=== PATIENT | female | born 1945 | race African-American/Black ===

== ENCOUNTER 2023-01-07 06:28 | Inpatient (IN) | payer MEDICARE, SELFPAY ==
[2023-01-07 07:02] LABS: Actual Bicarbonate (HCO3a) 19.6 mEq/L (22-28); Base Excess (BEa) -6.6 mEq/L (-2.0 to +3.0); CO2 Tension 41.7 mmHg (35.0-45.0); Calcium, Ionized (arterial) 1.11 mmol/L (1.12-1.30); Carboxyhemoglobin (COHb) 1.8 gm% (0.0-3.0); Hematocrit-ABG 38 % (36.0-47.0); Hemoglobin (Hb) 12.8 g/dL (12.0-16.0); O2 Tension (PaO2), arterial 62.6 mmHg (> 70.0); Potassium - ABG Lab 3.19 mmol/L (3.70-5.30)
[2023-01-07 07:05] LABS: ALV-art Gradient 170.475 mmHg (0-20); Puncture Site RRA
[2023-01-07 07:07] LABS: Hematocrit 39.6 % (36.0-47.0); Hemoglobin 12.5 g/dL (12.0-16.0); Mean Corpuscular HGB CONC 31.6 g/dL (32.0-36.0); Mean Corpuscular Hemoglobin 31.2 pg (27.0-31.0); Mean Corpuscular Volume 98.8 fl (78.0-98.0); Platelet Count 195 10x3/uL (130-400); RBC Distribution Width 13.8 % (11.5-14.5); Red Blood Cell (RBC) Count 4.01 mill/uL (4.20-5.40); White Blood Cell (WBC) Count 15.9 10x3/uL (4.8-10.8)
[2023-01-07 07:11] LABS: Delete Auto Diff?? YES; Manual Diff?? YES
[2023-01-07] MEDS ORDERED: Rocuronium Bromide 10 MG/ML (10ML VIAL) ONE (07:14)
[2023-01-07] MEDS ORDERED: Fentanyl CADD 100 ML IV SCH ×2 (07:30→10:45)
[2023-01-07 07:32] LABS: ALT (SGPT) 36 U/L (8-55); AST (SGOT) 73 U/L (5-34); Albumin 4.2 g/dL (3.4-4.8); Alkaline Phosphatase 96 U/L (40-110); Anion Gap 15 mmol/L (10-20); BUN (Urea Nitrogen) 14 mg/dL (9.8-20.1); Bilirubin, Total 0.3 mg/dL (0.2-1.2); Calc. Creatinine Clearance 0 mL/min (70-130); Calcium 8.2 mg/dL (7.8-10.44); Carbon Dioxide 23 mmol/L (23-31); Chloride 108 mmol/L (98-107); Estimated GFR 50; Globulin 2.2 g/dL (2.4-3.5); Glucose 240 mg/dL (83-110); Potassium 3.3 mmol/L (3.5-5.1); Protein, Total 6.4 g/dL (5.8-8.1); Sodium 143 mmol/L (136-145)
[2023-01-07 07:36] LABS: Band 1 % (5-11); Burr Cells MODERATE= 6-15 cells HPF (0-1); CellaVision Operator ID LAB.GE; Eosinophils 2 % (0-10); Lymphocytes 31 % (21-51); Monocytes 1 % (0-10); Neutrophil 65 % (42-75); Platelet Adequacy Comment Platelets Normal; Polychromasia SLIGHT = 2-3 cells HPF (0-2); Total Cell Count 100
[2023-01-07 07:42] LABS: Troponin I 0.484 ng/mL (< 0.028)
[2023-01-07] MEDS ORDERED: Ipratropium/Albuterol 3 ML NEB ONE (07:46)
[2023-01-07] MEDS ORDERED: methylPREDNISolone Sod Succ/PF 125 MG/2 ML VIAL ONE (07:51)
[2023-01-07] MEDS ORDERED: Potassium Chloride 20 MEQ/100 ML PREMIX BAG ONE (07:51)
[2023-01-07 07:58] LABS: Actual Bicarbonate (HCO3a) 21.1 mEq/L (22-28); Base Excess (BEa) -4.4 mEq/L (-2.0 to +3.0); CO2 Tension 40.7 mmHg (35.0-45.0); Calcium, Ionized (arterial) 1.08 mmol/L (1.12-1.30); Carboxyhemoglobin (COHb) 1.5 gm% (0.0-3.0); Hematocrit-ABG 38 % (36.0-47.0); Hemoglobin (Hb) 12.8 g/dL (12.0-16.0); O2 Tension (PaO2), arterial 187.9 mmHg (> 70.0); Potassium - ABG Lab 3.13 mmol/L (3.70-5.30); pH, Arterial 7.333 (7.35-7.45)
[2023-01-07 07:59] LABS: ALV-art Gradient 474.225 mmHg (0-20); Puncture Site RRA
[2023-01-07 08:15] LABS: Bacteria/HPF None Seen HPF (None Seen); Bilirubin Negative (Negative); Blood, Urine 2+ (Negative); CAUTI Indications for Culture Urological Procedure; Clarity Clear (Clear); Glucose, Urine (Dipstick) 100 mg/dL (Negative); Ketone, Urine Negative (Negative); Leukocyte Negative Leu/uL (Negative); Nitrite Negative (Negative); Protein, Urine (Dipstick) 50 mg/dL (Neg-Trace); Specific Gravity, Urine 1.012 (1.002-1.036); Squamous Epithelial 0-3 HPF (0-3); Urobilinogen Normal mg/dL (Less than 2); pH, Urine 5.5 (5.0-9.0)
[2023-01-07 08:20] LABS: Urine Culture Reflex Yes Yes
[2023-01-07 08:33] LABS: Magnesium 2.1 mg/dL (1.6-2.6)
[2023-01-07] MEDS ORDERED: cefTRIAXone (ROCEPHIN) 2 GM VIAL ONE (08:37)
[2023-01-07] MEDS ORDERED: Aspirin 300 MG Suppository ONE (08:37)
[2023-01-07] MEDS ORDERED: Azithromycin 500 MG VIAL ONE (08:37)
[2023-01-07 08:54] LABS: SARS-CoV-2 NAA Rapid Test Not Detected (NotDetected)
[2023-01-07] MEDS ORDERED: Iopamidol-370 76% 500 ML MDV (1 ML CHARGE) ONE (09:33)
[2023-01-07] MEDS ORDERED: Acetaminophen 325 MG TAB PER TUBE PRN (10:08)
[2023-01-07] MEDS ORDERED: NOREPINEPHRINE 8 MG/250 ML-D5W 250 ML IVPB PRN (10:08)
[2023-01-07] MEDS ORDERED: Ventilator Sedation Protocol 1 EACH FS SCH (10:15)
[2023-01-07 10:29] LABS: Lactic Acid 6.4 mmol/L (0.5-2.2)
[2023-01-07] MEDS ORDERED: Electrolyte Replacement Protocol 1 EACH FS SCH (10:30)
[2023-01-07] MEDS ORDERED: Dextrose 50% Abboject 50 ML SYRINGE SLOW IVP PRN (10:34)
[2023-01-07] MEDS ORDERED: Dextrose 5% in Water 1,000 ML IV PRN (10:34)
[2023-01-07] MEDS ORDERED: Glucagon 1 MG/ML KIT IM PRN (10:34)
[2023-01-07] MEDS ORDERED: Electrolyte Replacement Protocol FS PRN (10:45)
[2023-01-07] MEDS ORDERED: Sodium Chloride 0.9% 250 ML IV SCH (10:45)
[2023-01-07] MEDS ORDERED: Morphine 2 MG/ML VIAL SLOW IVP PRN (10:45)
[2023-01-07] MEDS ORDERED: Propofol BOLUS 1,000 MG/100 ML VIAL IV PRN (10:45)
[2023-01-07] MEDS ORDERED: Fentanyl BOLUS 250 ML IVPB PRN (10:45)
[2023-01-07 10:48] LABS: Amphetamine Not Detected (NotDetected); Barbiturates Screen Not Detected (NotDetected); Benzodiazepine Screen Not Detected (NotDetected); Cocaine Metabolite Screen Not Detected (NotDetected); Methadone Not Detected (NotDetected); Methamphetamine Not Detected (NotDetected); Opiate Screen Not Detected (NotDetected); Oxycodone Screen Not Detected (NotDetected); Phencyclidine (PCP) Not Detected (NotDetected); THC/Cannabinoid Screen Not Detected (NotDetected); Tricyclic Screen Not Detected (NotDetected)
[2023-01-07 11:06] LABS: Troponin I 5.897 ng/mL (< 0.028)
[2023-01-07 11:44] LABS: Legionella Urinary Ag Negative (Negative)
[2023-01-07 11:45] LABS: Strep pneumo Urine Ag NEGATIVE (NEGATIVE)
[2023-01-07] MEDS: Potassium Chloride 20 MEQ in Premix Bag 1 BAG IVPB SCH ×2 (11:45→14:00)
[2023-01-07] MEDS: Cefepime 2 GM in Sodium Chloride 0.9% 100 ML IVPB SCH ×2 (11:55→23:33)
[2023-01-07 12:19] LABS: Lactic Acid 3.2 mmol/L (0.5-2.2)
[2023-01-07] MEDS: Hydrocortisone Sod Succ/PF 100 mg/2 ml Vial IVP SCH ×2 (12:30→18:26)
[2023-01-07] MEDS: Insulin Regular 300 UNITS/3 ML VIAL SC SCH ×2 (13:10→18:26)
[2023-01-07 13:48] LABS: Critical Call Chem Troponin I DECREASE; Troponin I 5.563 ng/mL (< 0.028)
[2023-01-07] MEDS: Ipratropium/Albuterol 3 ML NEB NEB SCH ×3 (14:17→23:53)
[2023-01-07] MEDS ORDERED: Communication Order-Pharmacy FS ONE (14:23)
[2023-01-07 15:01] LABS: Hematocrit 40.2 % (36.0-47.0); Hemoglobin 12.2 g/dL (12.0-16.0); Platelet Count 118 10x3/uL (130-400)
[2023-01-07 16:46] LABS: Albumin 3.4 g/dL (3.4-4.8); Anion Gap 16 mmol/L (10-20); BUN (Urea Nitrogen) 15 mg/dL (9.8-20.1); BUN/Creatinine Ratio 16.48; Calc. Creatinine Clearance 82 mL/min (70-130); Calcium 7.7 mg/dL (7.8-10.44); Carbon Dioxide 15 mmol/L (23-31); Chloride 114 mmol/L (98-107); Estimated GFR 66; Glucose 184 mg/dL (83-110); Phosphorus 3.5 mg/dL (2.3-4.7); Potassium 4.4 mmol/L (3.5-5.1); Sodium 141 mmol/L (136-145)
[2023-01-07] MEDS ORDERED: Famotidine/PF 20 mg/2ml Vial SLOW IVP SCH (21:00)
[2023-01-07] MEDS ORDERED: Metoprolol Tartrate 5 MG/5 ML VIAL IVP PRN (23:17)
[2023-01-07] MEDS: Heparin 25,000 units/D5W 500 ML IV SCH (23:34)
[2023-01-07] MEDS: Heparin 10,000 UNITS/ 10 ML VIAL SLOW IVP SCH (23:35)
[2023-01-08] MEDS: Hydrocortisone Sod Succ/PF 100 mg/2 ml Vial IVP SCH ×4 (00:07→17:27)
[2023-01-08] MEDS: Propofol 1,000 MG/100 ML VIAL IV PRN ×4 (01:34→18:07)
[2023-01-08 03:34] LABS: #Monocytes 0.6 thou/uL (0.11-0.59); #Neutrophils 11.2 thou/uL (1.40-6.50); %Basophils 0.2 % (0.0-1.0); %Lymphocytes 6.4 % (21.0-51.0); %Monocytes 4.7 % (0.0-10.0); %Neutrophils 88.3 % (42.0-75.0); Hematocrit 40.2 % (36.0-47.0); Hemoglobin 12.3 g/dL (12.0-16.0); Mean Corpuscular HGB CONC 30.6 g/dL (32.0-36.0); Mean Corpuscular Hemoglobin 31.3 pg (27.0-31.0); Mean Platelet Volume 11.9 fL (7.4-10.4); Platelet Count 104 10x3/uL (130-400); RBC Distribution Width 13.7 % (11.5-14.5); Red Blood Cell (RBC) Count 3.93 mill/uL (4.20-5.40); White Blood Cell (WBC) Count 12.7 10x3/uL (4.8-10.8)
[2023-01-08 03:43] LABS: Mean Corpuscular Volume 102.3 fl (78.0-98.0)
[2023-01-08 03:57] LABS: ALT (SGPT) 37 U/L (8-55); AST (SGOT) 55 U/L (5-34); Albumin 3.2 g/dL (3.4-4.8); Alkaline Phosphatase 71 U/L (40-110); Anion Gap 18 mmol/L (10-20); BUN (Urea Nitrogen) 15 mg/dL (9.8-20.1); Bilirubin, Total 0.3 mg/dL (0.2-1.2); Calc. Creatinine Clearance 76 mL/min (70-130); Calcium 7.9 mg/dL (7.8-10.44); Carbon Dioxide 14 mmol/L (23-31); Chloride 111 mmol/L (98-107); Estimated GFR 77; Globulin 2.6 g/dL (2.4-3.5); Glucose 172 mg/dL (83-110); Potassium 4.2 mmol/L (3.5-5.1); Protein, Total 5.8 g/dL (5.8-8.1); Sodium 139 mmol/L (136-145)
[2023-01-08] MEDS: Levothyroxine Sodium 88 MCG TAB PO SCH (05:38)
[2023-01-08 07:18] LABS: PTT Greater than 250.0 sec (22.9-36.1)
[2023-01-08] MEDS: Ipratropium/Albuterol 3 ML NEB NEB SCH ×3 (07:32→18:21)
[2023-01-08] MEDS ORDERED: Furosemide 20 MG/2 ML VIAL SLOW IVP SCH (07:45)
[2023-01-08] MEDS: Azithromycin 500 MG in Sodium Chloride 0.9% 250 ML 250 ML IVPB SCH (08:12)
[2023-01-08] MEDS: Aspirin Chewable 81 MG TAB PER TUBE SCH (08:14)
[2023-01-08] MEDS: Lansoprazole 15 MG/5 ML (BATCHED)UDCUP PER TUBE SCH (08:18)
[2023-01-08] MEDS: Cefepime 2 GM in Sodium Chloride 0.9% 100 ML IVPB SCH ×2 (10:37→22:38)
[2023-01-08] MEDS: Lorazepam 2 MG/ML VIAL SLOW IVP PRN ×2 (11:29→12:45)
[2023-01-08] MEDS ORDERED: hydrALAZINE 20 MG/ML VIAL SLOW IVP PRN (12:15)
[2023-01-08] MEDS: Carvedilol 6.25 MG TAB PER TUBE SCH ×2 (12:34→20:33)
[2023-01-08] MEDS ORDERED: Fentanyl CADD 100 ML ONE (15:09)
[2023-01-08] MEDS: Heparin 10,000 UNITS/ 10 ML VIAL SLOW IVP SCH (19:07)
[2023-01-09] MEDS: Hydrocortisone Sod Succ/PF 100 mg/2 ml Vial IVP SCH ×4 (00:03→20:52)
[2023-01-09] MEDS: Ipratropium/Albuterol 3 ML NEB NEB SCH ×5 (00:11→23:46)
[2023-01-09] MEDS: Propofol 1,000 MG/100 ML VIAL IV PRN ×2 (00:24→06:00)
[2023-01-09 02:07] LABS: PTT 122.1 sec (22.9-36.1)
[2023-01-09 04:45] LABS: #Monocytes 0.5 thou/uL (0.11-0.59); #Neutrophils 12.5 thou/uL (1.40-6.50); %Basophils 0.1 % (0.0-1.0); %Lymphocytes 4.3 % (21.0-51.0); %Monocytes 3.6 % (0.0-10.0); %Neutrophils 91.6 % (42.0-75.0); Hematocrit 33.8 % (36.0-47.0); Mean Corpuscular HGB CONC 32.5 g/dL (32.0-36.0); Mean Corpuscular Volume 95.2 fl (78.0-98.0); Mean Platelet Volume 12.2 fL (7.4-10.4); Platelet Count 131 10x3/uL (130-400); Red Blood Cell (RBC) Count 3.55 mill/uL (4.20-5.40); White Blood Cell (WBC) Count 13.6 10x3/uL (4.8-10.8)
[2023-01-09 05:26] LABS: Albumin 3.3 g/dL (3.4-4.8); Alkaline Phosphatase 63 U/L (40-110); Anion Gap 12 mmol/L (10-20); Bilirubin, Total 0.3 mg/dL (0.2-1.2); Calcium 7.9 mg/dL (7.8-10.44); Carbon Dioxide 24 mmol/L (23-31); Chloride 107 mmol/L (98-107); Globulin 2.2 g/dL (2.4-3.5); Glucose 127 mg/dL (83-110); Protein, Total 5.5 g/dL (5.8-8.1); Sodium 139 mmol/L (136-145)
[2023-01-09 05:33] LABS: ALT (SGPT) 29 U/L (8-55); AST (SGOT) 28 U/L (5-34); BUN (Urea Nitrogen) 18 mg/dL (9.8-20.1); Calc. Creatinine Clearance 77 mL/min (70-130); Estimated GFR 76
[2023-01-09] MEDS: Levothyroxine Sodium 88 MCG TAB PO SCH (05:54)
[2023-01-09] MEDS ORDERED: Furosemide 20 MG/2 ML VIAL SLOW IVP SCH (07:15)
[2023-01-09] MEDS: Lansoprazole 15 MG/5 ML (BATCHED)UDCUP PER TUBE SCH (08:18)
[2023-01-09] MEDS: Carvedilol 6.25 MG TAB PER TUBE SCH (08:18)
[2023-01-09] MEDS: Aspirin Chewable 81 MG TAB PER TUBE SCH (08:19)
[2023-01-09] MEDS: Azithromycin 500 MG in Sodium Chloride 0.9% 250 ML 250 ML IVPB SCH (09:54)
[2023-01-09] MEDS: Cefepime 2 GM in Sodium Chloride 0.9% 100 ML IVPB SCH ×2 (12:33→23:19)
[2023-01-09] MEDS: Heparin 25,000 units/D5W 500 ML IV SCH (13:44)
[2023-01-09] MEDS: Furosemide 20 MG/2 ML VIAL SLOW IVP SCH (13:44)
[2023-01-09 14:30] LABS: PTT 154.6 sec (22.9-36.1)
[2023-01-09] MEDS: Heparin 10,000 UNITS/ 10 ML VIAL SLOW IVP SCH (23:10)
[2023-01-10] MEDS: Hydrocortisone Sod Succ/PF 100 mg/2 ml Vial IVP SCH ×5 (01:06→23:19)
[2023-01-10 04:46] LABS: #Monocytes 0.5 thou/uL (0.11-0.59); #Neutrophils 12.3 thou/uL (1.40-6.50); %Basophils 0.1 % (0.0-1.0); %Lymphocytes 5.4 % (21.0-51.0); %Monocytes 3.5 % (0.0-10.0); %Neutrophils 90.3 % (42.0-75.0); Hematocrit 33.5 % (36.0-47.0); Hemoglobin 10.8 g/dL (12.0-16.0); Mean Corpuscular HGB CONC 32.2 g/dL (32.0-36.0); Mean Corpuscular Hemoglobin 30.6 pg (27.0-31.0); Mean Corpuscular Volume 94.9 fl (78.0-98.0); Mean Platelet Volume 12.2 fL (7.4-10.4); Platelet Count 136 10x3/uL (130-400); RBC Distribution Width 14.3 % (11.5-14.5); Red Blood Cell (RBC) Count 3.53 mill/uL (4.20-5.40); White Blood Cell (WBC) Count 13.6 10x3/uL (4.8-10.8)
[2023-01-10 04:58] LABS: Hemoglobin A1c 5.2 % (4.0-6.0)
[2023-01-10 05:08] LABS: ALT (SGPT) 27 U/L (8-55); AST (SGOT) 21 U/L (5-34); Albumin 3.3 g/dL (3.4-4.8); Alkaline Phosphatase 61 U/L (40-110); Anion Gap 11 mmol/L (10-20); BUN (Urea Nitrogen) 24 mg/dL (9.8-20.1); Bilirubin, Total 0.3 mg/dL (0.2-1.2); Calc. Creatinine Clearance 72 mL/min (70-130); Calcium 8.1 mg/dL (7.8-10.44); Carbon Dioxide 27 mmol/L (23-31); Chloride 106 mmol/L (98-107); Estimated GFR 73; Globulin 2.3 g/dL (2.4-3.5); Glucose 118 mg/dL (83-110); Potassium 3.5 mmol/L (3.5-5.1); Protein, Total 5.6 g/dL (5.8-8.1); Sodium 140 mmol/L (136-145)
[2023-01-10] MEDS: Furosemide 20 MG/2 ML VIAL SLOW IVP SCH ×2 (05:42→13:35)
[2023-01-10] MEDS: Levothyroxine Sodium 88 MCG TAB PO SCH (05:42)
[2023-01-10] MEDS: Ipratropium/Albuterol 3 ML NEB NEB SCH ×3 (07:33→18:41)
[2023-01-10] MEDS: Lansoprazole 15 MG/5 ML (BATCHED)UDCUP PER TUBE SCH (08:00)
[2023-01-10] MEDS: Aspirin Chewable 81 MG TAB PER TUBE SCH (08:00)
[2023-01-10] MEDS ORDERED: Potassium Chloride 20 MEQ TAB PO SCH (08:00)
[2023-01-10] MEDS: Azithromycin 500 MG in Sodium Chloride 0.9% 250 ML 250 ML IVPB SCH (08:00)
[2023-01-10 09:37] LABS: Actual Bicarbonate (HCO3a) 28.2 mEq/L (22-28); Base Excess (BEa) 4.5 mEq/L (-2.0 to +3.0); CO2 Tension 38.7 mmHg (35.0-45.0); Calcium, Ionized (arterial) 1.03 mmol/L (1.12-1.30); Carboxyhemoglobin (COHb) 0.3 gm% (0.0-3.0); Hematocrit-ABG 35 % (36.0-47.0); Hemoglobin (Hb) 11.8 g/dL (12.0-16.0); O2 Tension (PaO2), arterial 136.2 mmHg (> 70.0); Potassium - ABG Lab 3.37 mmol/L (3.70-5.30); pH, Arterial 7.481 (7.35-7.45)
[2023-01-10 09:52] LABS: ALV-art Gradient 100.625 mmHg (0-20); Puncture Site LRA
[2023-01-10] MEDS: Cefepime 2 GM in Sodium Chloride 0.9% 100 ML IVPB SCH ×2 (11:33→22:21)
[2023-01-10 11:51] LABS: Potassium 3.5 mmol/L (3.5-5.1)
[2023-01-10] MEDS ORDERED: Potassium Bicarbonate/Cit Ac 20 MEQ TAB PO SCH (13:45)
[2023-01-10] MEDS: Carvedilol 3.125 MG TAB PO SCH (17:20)
[2023-01-10 18:46] LABS: Potassium 4.3 mmol/L (3.5-5.1)
[2023-01-11] MEDS: Ipratropium/Albuterol 3 ML NEB NEB SCH ×4 (01:50→18:18)
[2023-01-11 03:55] LABS: #Monocytes 0.5 thou/uL (0.11-0.59); #Neutrophils 11.4 thou/uL (1.40-6.50); %Basophils 0.1 % (0.0-1.0); %Lymphocytes 5.8 % (21.0-51.0); %Monocytes 4.1 % (0.0-10.0); %Neutrophils 89.5 % (42.0-75.0); Hematocrit 34.2 % (36.0-47.0); Mean Corpuscular HGB CONC 32.2 g/dL (32.0-36.0); Mean Corpuscular Hemoglobin 31.1 pg (27.0-31.0); Mean Corpuscular Volume 96.6 fl (78.0-98.0); Mean Platelet Volume 12.1 fL (7.4-10.4); Platelet Count 144 10x3/uL (130-400); RBC Distribution Width 14.4 % (11.5-14.5); Red Blood Cell (RBC) Count 3.54 mill/uL (4.20-5.40); White Blood Cell (WBC) Count 12.7 10x3/uL (4.8-10.8)
[2023-01-11 04:36] LABS: ALT (SGPT) 38 U/L (8-55); AST (SGOT) 37 U/L (5-34); Albumin 3.4 g/dL (3.4-4.8); Alkaline Phosphatase 61 U/L (40-110); Anion Gap 8 mmol/L (10-20); BUN (Urea Nitrogen) 36 mg/dL (9.8-20.1); Bilirubin, Total 0.4 mg/dL (0.2-1.2); Calc. Creatinine Clearance 75 mL/min (70-130); Calcium 8.2 mg/dL (7.8-10.44); Carbon Dioxide 31 mmol/L (23-31); Chloride 103 mmol/L (98-107); Estimated GFR 77; Globulin 2.6 g/dL (2.4-3.5); Glucose 111 mg/dL (83-110); Potassium 4.1 mmol/L (3.5-5.1); Sodium 138 mmol/L (136-145)
[2023-01-11] MEDS: Furosemide 20 MG/2 ML VIAL SLOW IVP SCH (05:37)
[2023-01-11] MEDS: Hydrocortisone Sod Succ/PF 100 mg/2 ml Vial IVP SCH ×2 (05:38→21:51)
[2023-01-11] MEDS: Levothyroxine Sodium 88 MCG TAB PO SCH (06:46)
[2023-01-11] MEDS: Furosemide 20 MG TAB PO SCH (08:32)
[2023-01-11] MEDS: Azithromycin 500 MG in Sodium Chloride 0.9% 250 ML 250 ML IVPB SCH (08:33)
[2023-01-11] MEDS: Carvedilol 3.125 MG TAB PO SCH ×2 (08:33→16:34)
[2023-01-11] MEDS: Aspirin Chewable 81 MG TAB PER TUBE SCH (08:33)
[2023-01-11] MEDS: Lansoprazole 15 MG/5 ML (BATCHED)UDCUP PER TUBE SCH (08:38)
[2023-01-11] MEDS: Cefepime 2 GM in Sodium Chloride 0.9% 100 ML IVPB SCH ×2 (11:17→21:59)
[2023-01-12] MEDS: Ipratropium/Albuterol 3 ML NEB NEB SCH ×4 (01:41→18:47)
[2023-01-12 05:02] LABS: #Monocytes 0.5 thou/uL (0.11-0.59); #Neutrophils 11.8 thou/uL (1.40-6.50); %Basophils 0.1 % (0.0-1.0); %Eosinophils 0.1 % (0.0-10.0); %Lymphocytes 8.4 % (21.0-51.0); %Monocytes 3.9 % (0.0-10.0); %Neutrophils 86.9 % (42.0-75.0); Hematocrit 35.5 % (36.0-47.0); Hemoglobin 11.5 g/dL (12.0-16.0); Mean Corpuscular HGB CONC 32.4 g/dL (32.0-36.0); Mean Corpuscular Hemoglobin 31.1 pg (27.0-31.0); Mean Corpuscular Volume 95.9 fl (78.0-98.0); Mean Platelet Volume 11.8 fL (7.4-10.4); Platelet Count 169 10x3/uL (130-400); White Blood Cell (WBC) Count 13.6 10x3/uL (4.8-10.8)
[2023-01-12 05:23] LABS: ALT (SGPT) 41 U/L (8-55); AST (SGOT) 33 U/L (5-34); Albumin 3.6 g/dL (3.4-4.8); Alkaline Phosphatase 67 U/L (40-110); Anion Gap 13 mmol/L (10-20); BUN (Urea Nitrogen) 32 mg/dL (9.8-20.1); Bilirubin, Total 0.6 mg/dL (0.2-1.2); Calc. Creatinine Clearance 83 mL/min (70-130); Calcium 8.7 mg/dL (7.8-10.44); Carbon Dioxide 30 mmol/L (23-31); Chloride 103 mmol/L (98-107); Estimated GFR 89; Globulin 2.5 g/dL (2.4-3.5); Glucose 88 mg/dL (83-110); Potassium 3.6 mmol/L (3.5-5.1); Protein, Total 6.1 g/dL (5.8-8.1); Sodium 142 mmol/L (136-145)
[2023-01-12] MEDS: Levothyroxine Sodium 88 MCG TAB PO SCH (06:18)
[2023-01-12] MEDS: Carvedilol 3.125 MG TAB PO SCH (08:05)
[2023-01-12] MEDS: Furosemide 20 MG TAB PO SCH (08:05)
[2023-01-12] MEDS: Aspirin Chewable 81 MG TAB PER TUBE SCH (08:06)
[2023-01-12] MEDS: Lansoprazole 15 MG/5 ML (BATCHED)UDCUP PER TUBE SCH (08:10)
[2023-01-12] MEDS: Hydrocortisone Sod Succ/PF 100 mg/2 ml Vial IVP SCH (08:52)
[2023-01-12] MEDS ORDERED: DC Sedation Protocol FS SCH (10:09)
[2023-01-12] MEDS: Cefepime 2 GM in Sodium Chloride 0.9% 100 ML IVPB SCH ×2 (12:35→22:21)
[2023-01-12] MEDS ORDERED: Spironolactone 25 MG TAB PO SCH (13:45)
[2023-01-12] MEDS ORDERED: Carvedilol 3.125 MG TAB PO SCH (17:00)
[2023-01-12] MEDS: Sacubitril 24MG/Valsartan 26 MG TAB PO SCH (22:20)
[2023-01-13] MEDS: Ipratropium/Albuterol 3 ML NEB NEB SCH ×4 (00:28→18:56)
[2023-01-13 05:40] LABS: Hemoglobin 11.3 g/dL (12.0-16.0); Mean Corpuscular HGB CONC 32.3 g/dL (32.0-36.0); Mean Corpuscular Hemoglobin 30.5 pg (27.0-31.0); Mean Corpuscular Volume 94.3 fl (78.0-98.0); Mean Platelet Volume 11.8 fL (7.4-10.4); Platelet Count 168 10x3/uL (130-400); RBC Distribution Width 13.7 % (11.5-14.5); Red Blood Cell (RBC) Count 3.71 mill/uL (4.20-5.40); White Blood Cell (WBC) Count 10.4 10x3/uL (4.8-10.8)
[2023-01-13 05:44] LABS: Delete Auto Diff?? YES; Manual Diff?? YES
[2023-01-13 06:08] LABS: ALT (SGPT) 33 U/L (8-55); AST (SGOT) 26 U/L (5-34); Albumin 3.2 g/dL (3.4-4.8); Alkaline Phosphatase 64 U/L (40-110); Anion Gap 14 mmol/L (10-20); BUN (Urea Nitrogen) 30 mg/dL (9.8-20.1); Bilirubin, Total 0.7 mg/dL (0.2-1.2); Calc. Creatinine Clearance 79 mL/min (70-130); Calcium 8.4 mg/dL (7.8-10.44); Carbon Dioxide 30 mmol/L (23-31); Chloride 99 mmol/L (98-107); Estimated GFR 83; Globulin 2.4 g/dL (2.4-3.5); Glucose 74 mg/dL (83-110); Potassium 3.1 mmol/L (3.5-5.1); Protein, Total 5.6 g/dL (5.8-8.1); Sodium 140 mmol/L (136-145)
[2023-01-13 06:11] LABS: Anisocytosis MODERATE=16-30 cells HPF (0-5); Band 7 % (5-11); CellaVision Operator ID LAB.CLH1; Eosinophils 1 % (0-10); Hypochromia SLIGHT = 6-15 cells HPF (0-5); Lymphocytes 33 % (21-51); Macrocytosis SLIGHT = 6-15 cells HPF (0-5); Neutrophil 58 % (42-75); Platelet Adequacy Comment Platelets Normal; Polychromasia SLIGHT = 2-3 cells HPF (0-2); Reactive Lymphocytes 1 % (0-10); Total Cell Count 100
[2023-01-13] MEDS: Levothyroxine Sodium 88 MCG TAB PO SCH (06:13)
[2023-01-13] MEDS ORDERED: Carvedilol 3.125 MG TAB PO SCH (07:49)
[2023-01-13] MEDS ORDERED: Potassium Chloride 20 MEQ TAB PO SCH (08:00)
[2023-01-13] MEDS: Aspirin Chewable 81 MG TAB PER TUBE SCH (08:57)
[2023-01-13] MEDS: Carvedilol 6.25 MG TAB PO SCH ×2 (08:57→16:30)
[2023-01-13] MEDS: Spironolactone 25 MG TAB PO SCH (08:57)
[2023-01-13] MEDS: Furosemide 20 MG TAB PO SCH (08:57)
[2023-01-13] MEDS: Sacubitril 24MG/Valsartan 26 MG TAB PO SCH ×2 (08:58→21:17)
[2023-01-13] MEDS: Lansoprazole 15 MG/5 ML (BATCHED)UDCUP PER TUBE SCH (08:58)
[2023-01-13] MEDS ORDERED: Hydrocortisone Sod Succ/PF 100 mg/2 ml Vial IVP SCH (09:00)
[2023-01-13] MEDS: Cefepime 2 GM in Sodium Chloride 0.9% 100 ML IVPB SCH ×2 (10:58→23:18)
[2023-01-13 18:04] LABS: Potassium 3.6 mmol/L (3.5-5.1)
[2023-01-14] MEDS: Ipratropium/Albuterol 3 ML NEB NEB SCH ×5 (00:33→23:50)
[2023-01-14] MEDS: Levothyroxine Sodium 88 MCG TAB PO SCH (05:29)
[2023-01-14 05:55] LABS: Hematocrit 35.5 % (36.0-47.0); Hemoglobin 11.8 g/dL (12.0-16.0); Mean Corpuscular HGB CONC 33.2 g/dL (32.0-36.0); Mean Corpuscular Hemoglobin 30.8 pg (27.0-31.0); Mean Corpuscular Volume 92.7 fl (78.0-98.0); Mean Platelet Volume 11.5 fL (7.4-10.4); Platelet Count 174 10x3/uL (130-400); RBC Distribution Width 13.4 % (11.5-14.5); Red Blood Cell (RBC) Count 3.83 mill/uL (4.20-5.40); White Blood Cell (WBC) Count 11.3 10x3/uL (4.8-10.8)
[2023-01-14 06:04] LABS: Delete Auto Diff?? YES; Manual Diff?? YES
[2023-01-14 06:18] LABS: ALT (SGPT) 29 U/L (8-55); AST (SGOT) 25 U/L (5-34); Albumin 3.2 g/dL (3.4-4.8); Alkaline Phosphatase 59 U/L (40-110); Anion Gap 13 mmol/L (10-20); BUN (Urea Nitrogen) 23 mg/dL (9.8-20.1); Bilirubin, Total 0.9 mg/dL (0.2-1.2); Calc. Creatinine Clearance 80 mL/min (70-130); Calcium 8.6 mg/dL (7.8-10.44); Carbon Dioxide 28 mmol/L (23-31); Chloride 101 mmol/L (98-107); Estimated GFR 84; Globulin 2.6 g/dL (2.4-3.5); Glucose 60 mg/dL (83-110); Potassium 3.6 mmol/L (3.5-5.1); Protein, Total 5.8 g/dL (5.8-8.1); Sodium 138 mmol/L (136-145)
[2023-01-14 06:47] LABS: Band 2 % (5-11); CellaVision Operator ID LAB.GE; Eosinophils 1 % (0-10); Lymphocytes 24 % (21-51); Monocytes 5 % (0-10); Neutrophil 64 % (42-75); Platelet Adequacy Comment Platelets Normal; Polychromasia SLIGHT = 2-3 cells HPF (0-2); Reactive Lymphocytes 1 % (0-10); Total Cell Count 101
[2023-01-14] MEDS: Carvedilol 6.25 MG TAB PO SCH ×2 (09:24→18:06)
[2023-01-14] MEDS: Sacubitril 24MG/Valsartan 26 MG TAB PO SCH ×2 (09:24→21:33)
[2023-01-14] MEDS: Furosemide 20 MG TAB PO SCH (09:24)
[2023-01-14] MEDS: Lansoprazole 15 MG/5 ML (BATCHED)UDCUP PER TUBE SCH (09:24)
[2023-01-14] MEDS: Aspirin Chewable 81 MG TAB PER TUBE SCH (09:24)
[2023-01-14] MEDS: Spironolactone 25 MG TAB PO SCH (09:24)
[2023-01-14 11:48] VITALS: BMI 29.1
[2023-01-15 04:45] LABS: #Basophils 0.1 thou/uL (0.0-0.2); #Eosinphils 0.1 thou/uL (0.0-0.7); #Monocytes 0.5 thou/uL (0.11-0.59); #Neutrophils 6.5 thou/uL (1.40-6.50); %Basophils 0.7 % (0.0-1.0); %Eosinophils 1.4 % (0.0-10.0); %Lymphocytes 26.9 % (21.0-51.0); %Monocytes 5.3 % (0.0-10.0); Hematocrit 38.2 % (36.0-47.0); Hemoglobin 12.5 g/dL (12.0-16.0); Mean Corpuscular HGB CONC 32.7 g/dL (32.0-36.0); Mean Corpuscular Hemoglobin 30.9 pg (27.0-31.0); Mean Corpuscular Volume 94.3 fl (78.0-98.0); Mean Platelet Volume 10.8 fL (7.4-10.4); Platelet Count 166 10x3/uL (130-400); RBC Distribution Width 13.3 % (11.5-14.5); Red Blood Cell (RBC) Count 4.05 mill/uL (4.20-5.40); White Blood Cell (WBC) Count 10.2 10x3/uL (4.8-10.8)
[2023-01-15 05:10] LABS: ALT (SGPT) 25 U/L (8-55); AST (SGOT) 25 U/L (5-34); Albumin 3.3 g/dL (3.4-4.8); Alkaline Phosphatase 60 U/L (40-110); Anion Gap 11 mmol/L (10-20); BUN (Urea Nitrogen) 19 mg/dL (9.8-20.1); Bilirubin, Total 0.9 mg/dL (0.2-1.2); Calc. Creatinine Clearance 79 mL/min (70-130); Calcium 8.7 mg/dL (7.8-10.44); Carbon Dioxide 29 mmol/L (23-31); Cardiac Risk 4.8 (Less than 4.5); Chloride 97 mmol/L (98-107); Cholesterol 195 mg/dl (< 200 Desired); Estimated GFR 83; Globulin 2.8 g/dL (2.4-3.5); Glucose 68 mg/dL (83-110); HDL Cholesterol 41 mg/dL (>60 Neg Risk); LDL Cholesterol, Calculated 124 mg/dL; Potassium 4.2 mmol/L (3.5-5.1); Protein, Total 6.1 g/dL (5.8-8.1); Sodium 133 mmol/L (136-145); Triglycerides 148 mg/dL (Less than 150)
[2023-01-15] MEDS: Carvedilol 6.25 MG TAB PO SCH ×2 (05:12→18:10)
[2023-01-15] MEDS: Levothyroxine Sodium 88 MCG TAB PO SCH (05:12)
[2023-01-15] MEDS ORDERED: Sodium Chloride 0.9% 1,000 ML IV SCH ×2 (06:00→07:38)
[2023-01-15] MEDS ORDERED: Communication Order-Pharmacy FS SCH (06:00)
[2023-01-15] MEDS ORDERED: fentaNYL 50 mcg/mL 1 mL Vial ONE (06:15)
[2023-01-15] MEDS ORDERED: Heparin 10,000 UNITS/ 10 ML VIAL ONE (06:16)
[2023-01-15] MEDS ORDERED: Lidocaine 1% (PF) 30 ML VIAL ONE (06:16)
[2023-01-15] MEDS ORDERED: Midazolam HCl 2 mg/2 ml Vial ONE (06:16)
[2023-01-15] MEDS ORDERED: Nitroglycerin 50 MG/250 ML BOT 0 ML ONE (06:16)
[2023-01-15] MEDS ORDERED: Protamine Sulfate 50 MG/5 ML VIAL ONE ×2 (07:30→07:41)
[2023-01-15] MEDS ORDERED: Acetaminophen/Codeine 30-300mg Tablet PO PRN (07:37)
[2023-01-15] MEDS ORDERED: Sodium Chloride 0.9% 200 ML IV PRN (07:37)
[2023-01-15] MEDS: Ipratropium/Albuterol 3 ML NEB NEB SCH ×4 (07:52→23:37)
[2023-01-15] MEDS ORDERED: Iopamidol 370 76% 100 ML VIAL ONE (09:43)
[2023-01-15] MEDS: Sacubitril 24MG/Valsartan 26 MG TAB PO SCH ×2 (11:20→20:15)
[2023-01-15] MEDS: Lansoprazole 15 MG/5 ML (BATCHED)UDCUP PER TUBE SCH (11:20)
[2023-01-15] MEDS: Aspirin Chewable 81 MG TAB PER TUBE SCH (11:21)
[2023-01-15] MEDS: Spironolactone 25 MG TAB PO SCH (11:25)
[2023-01-15] MEDS: Acetaminophen/Codeine 30-300mg Tablet PO PRN ×2 (11:29→20:16)
[2023-01-15] MEDS: Furosemide 20 MG TAB PO SCH (15:50)
[2023-01-16] MEDS: Acetaminophen/Codeine 30-300mg Tablet PO PRN (05:05)
[2023-01-16] MEDS: Levothyroxine Sodium 88 MCG TAB PO SCH (05:05)
[2023-01-16 05:17] LABS: #Eosinphils 0.1 thou/uL (0.0-0.7); #Monocytes 0.4 thou/uL (0.11-0.59); #Neutrophils 4.7 thou/uL (1.40-6.50); %Basophils 0.3 % (0.0-1.0); %Eosinophils 1.7 % (0.0-10.0); %Lymphocytes 22.6 % (21.0-51.0); %Monocytes 6.1 % (0.0-10.0); %Neutrophils 66.8 % (42.0-75.0); Hematocrit 35.6 % (36.0-47.0); Hemoglobin 11.9 g/dL (12.0-16.0); Mean Corpuscular HGB CONC 33.4 g/dL (32.0-36.0); Mean Corpuscular Hemoglobin 31.2 pg (27.0-31.0); Mean Corpuscular Volume 93.4 fl (78.0-98.0); Mean Platelet Volume 10.5 fL (7.4-10.4); Platelet Count 160 10x3/uL (130-400); RBC Distribution Width 13.2 % (11.5-14.5); Red Blood Cell (RBC) Count 3.81 mill/uL (4.20-5.40); White Blood Cell (WBC) Count 7.1 10x3/uL (4.8-10.8)
[2023-01-16 05:30] LABS: ALT (SGPT) 20 U/L (8-55); AST (SGOT) 24 U/L (5-34); Alkaline Phosphatase 59 U/L (40-110); Anion Gap 13 mmol/L (10-20); BUN (Urea Nitrogen) 13 mg/dL (9.8-20.1); Calc. Creatinine Clearance 80 mL/min (70-130); Calcium 8.2 mg/dL (7.8-10.44); Carbon Dioxide 28 mmol/L (23-31); Chloride 97 mmol/L (98-107); Estimated GFR 86; Globulin 2.8 g/dL (2.4-3.5); Glucose 77 mg/dL (83-110); Protein, Total 5.8 g/dL (5.8-8.1); Sodium 134 mmol/L (136-145)
[2023-01-16] MEDS: Ipratropium/Albuterol 3 ML NEB NEB SCH ×2 (06:50→12:46)
[2023-01-16] MEDS: Carvedilol 6.25 MG TAB PO SCH ×2 (08:52→09:36)
[2023-01-16] MEDS: Spironolactone 25 MG TAB PO SCH (08:52)
[2023-01-16] MEDS: Sacubitril 24MG/Valsartan 26 MG TAB PO SCH ×2 (08:52→09:32)
[2023-01-16] MEDS: Furosemide 20 MG TAB PO SCH (08:52)
[2023-01-16] MEDS ORDERED: Carvedilol 3.125 MG TAB PO SCH ×2 (10:00→17:00)
[2023-01-16 12:10] VITALS: BP 101/58; TEMP 97.8
== END 2023-01-16 13:00 | DRG 207 ==
LOC: EDBD 06:28 → ERS 06:28 → CCU 09:51 → 2NO 01-12 10:41
PROVIDERS: ADMIT Family Medicine; ATTEND Internal Medicine
PROC: 0BH17EZ Insertion of Endotracheal Airway into Trachea, Via Natural or Artificial Opening (ICD-10-PCS; principal; 2023-01-07)
PROC: 4A133R1 Monitoring of Arterial Saturation, Peripheral, Percutaneous Approach (ICD-10-PCS; 2023-01-07)
PROC: 3E033XZ Introduction of Vasopressor into Peripheral Vein, Percutaneous Approach (ICD-10-PCS; 2023-01-07)
PROC: 0D9670Z Drainage of Stomach with Drainage Device, Via Natural or Artificial Opening (ICD-10-PCS; 2023-01-07)
PROC: 5A1955Z Respiratory Ventilation, Greater than 96 Consecutive Hours (ICD-10-PCS; 2023-01-07)
PROC: 4A023N7 Measurement of Cardiac Sampling and Pressure, Left Heart, Percutaneous Approach (ICD-10-PCS; 2023-01-15)
PROC: B2111ZZ Fluoroscopy of Multiple Coronary Arteries using Low Osmolar Contrast (ICD-10-PCS; 2023-01-15)
PROC: B2151ZZ Fluoroscopy of Left Heart using Low Osmolar Contrast (ICD-10-PCS; 2023-01-15)
DX: J96.01 Acute respiratory failure with hypoxia (principal); G93.41 Metabolic encephalopathy; I21.A1 Myocardial infarction type 2; J18.9 Pneumonia, unspecified organism; I50.23 Acute on chronic systolic (congestive) heart failure; I16.1 Hypertensive emergency; I16.9 Hypertensive crisis, unspecified; I42.9 Cardiomyopathy, unspecified; I11.0 Hypertensive heart disease with heart failure; E87.6 Hypokalemia; I08.1 Rheumatic disorders of both mitral and tricuspid valves; R73.9 Hyperglycemia, unspecified; Z20.822 Contact with and (suspected) exposure to COVID-19; Z78.1 Physical restraint status
CPT/HCPCS: 31500; 36415; 36416; 36600; 51702; 71045; 71275; 74018; 80053; 80061; 80306; 81001; 82805; 83036; 83605; 83735; 83880; 84145; 84443; 84484; 85025; 85347; 85730; 87040; 87070; 87086; 87205; 87449; 87899; 93005; 93010; 93306; 93458; 94002; 94003; 94640; 94660; 96365; 96366; 96368; 96375; 99152; C1769; J0360; J0456; J0692; J0696; J1644; J1650; J1720; J1815; J1940; J2001; J2060; J2250; J2704; J2720; J2930; J3010; J3480; J3490; J7030; J7050; J7620; Q9967